=== PATIENT | female | born 1925 | race African-American/Black ===

== ENCOUNTER → 2017-01-02 | Outpatient (CLI) | payer OTHER, MEDICAID ==
[~2017-01-02] MED LIST: AMLO5TAB2; HYDR12.527 PO; HYDR12.56; HYDR25TA4; LOS50T PO; LOSA100T27; LOSA100T27 PO; MET50T PO; METO-159; SIMV-13; SIMV-13 PO; TRAM50TA2; TRAM50TA2 PO
[2017-01-02 12:07] LABS: Urine Bilirubin Negative (Negative); Urine Blood Negative /uL (Negative); Urine Color Yellow (Yellow); Urine Glucose Normal (Normal); Urine Ketone Negative (Negative); Urine Nitrite Negative (Negative); Urine Urobilinogen Normal (Negative)
[2017-01-02 12:54] LABS: Albumin 3.1 g/dL (3.4-5.0); BUN/Creatinine Ratio 24.8; Bilirubin, Total 0.5 mg/dL (0.2-1.0); Calcium 8.6 mg/dL (8.5-10.1); Potassium 3.7 mmol/L (3.5-5.1); Total Protein 7.8 g/dL (6.4-8.2)
== END | disposition home or self-care (01) ==
LOC: LAB 11:18
PROVIDERS: ATTEND Family Medicine
DX: I10 Essential (primary) hypertension (principal); E78.4 Other hyperlipidemia; E87.6 Hypokalemia
CPT/HCPCS: 36415; 80053; 80061; 81003

== ENCOUNTER 2017-05-10 11:34 | Emergency (ER) | payer OTHER, MEDICAID ==
[~2017-05-10] VITALS: Ht 165.1 cm; Wt 73.9 kg
[2017-05-10 12:56] VITALS: BP 171/91
== END 2017-05-10 12:33 | disposition home or self-care (01) ==
LOC: ER 11:34
DX: T50.901A Poisoning by unspecified drugs, medicaments and biological substances, accidental (unintentional), initial encounter (principal); I10 Essential (primary) hypertension; E78.5 Hyperlipidemia, unspecified; M19.90 Unspecified osteoarthritis, unspecified site; Z90.710 Acquired absence of both cervix and uterus; Z79.899 Other long term (current) drug therapy; Y92.89 Other specified places as the place of occurrence of the external cause
CPT/HCPCS: 93005